=== PATIENT | male | born 1955 | race Caucasian/White ===

== ENCOUNTER 2024-09-22 05:58 | Emergency (ER) | payer BC, SELFPAY ==
--- NOTE | ~2024-09-22 | CT_ITS ---
EXAMINATION: CT ABDOMEN AND PELVIS WITHOUT CONTRAST CLINICAL INFORMATION: Left flank pain COMPARISON: None available. TECHNIQUE: Multidetector volumetric imaging was performed from the superior aspect of the liver through the pubic symphysis. Sagittal and coronal reformatted images were obtained on the technologist's workstation. This CT examination was performed using dose optimization techniques as appropriate, variously including the following: *Automated exposure control *Adjustment of mA and/or kV according to patient size (this includes techniques or standardized protocols for targeted exams where dose is matched to indication/reason for exam; i.e. extremities or head) *Use of iterative reconstruction technique. DLP: 852 mGy centimeter. FINDINGS: Inadequate evaluation of the intra-abdominal organs and vascular structures due to lack of IV contrast. LUNG BASES: No acute airspace disease or gross pulmonary nodules. LIVER, GALLBLADDER, AND BILIARY TREE: Liver measures 19 cm. Gallbladder is contracted without pericholecystic fluid collection or gallbladder wall thickening. No intrahepatic or extrahepatic biliary ductal dilatation. PANCREAS: No peripancreatic fluid collections. No main pancreatic ductal dilatation. Punctate calcification tail of the pancreas. SPLEEN: 8 cm. ADRENAL GLANDS: No nodular lesions. KIDNEYS AND URETERS: Right kidney: No hydronephrosis. There is a 19 mm ovoid shaped calcium attenuation extending through the corticomedullary parenchyma of the lower pole with associated renal cortical defect. There are multifocal different sizes fluid density lesions, the largest measures 45 mm in an exophytic location of the upper pole. Left kidney: There is a less than 0.5 mm calcification in the lumen of the distal left ureter near the vesicoureteral junction. There is mild dilatation of the pelvicalyceal system. BLADDER: Collapsed. GASTROINTESTINAL TRACT: Appendix is normal. Few scattered diverticula in the transverse colon and left hemicolon. Abundant stool. No intestinal obstruction pattern. No intestinal wall thickening. No ascites. No pneumoperitoneum. No pneumatosis intestinalis. ABDOMINAL WALL: There is a fat-containing lobulated the umbilical and periumbilical hernia. LYMPH NODES: Nonspecific mildly prominent less than 10 mm lymph nodes in the mesentery, retroperitoneum, inguinal and iliac. Mesenteric edema pattern. VASCULAR: Calcified plaques in the abdominal aorta and iliac arteries as well as femoral arteries and the coronary arteries no aneurysm, abdominal aorta. Calcified plaque in the origin of the right main renal artery and the celiac trunk and superior mesenteric artery. PELVIC VISCERA: Dystrophic calcifications in a nonenlarged prostate gland. OSSEOUS STRUCTURES: Multilevel thoracolumbar spondylosis pronounced at L4-5 and L5-S1 levels resulting in bilateral neuroforamina stenosis and likely central spinal canal stenosis. Left hemilaminectomy, L4-5 and L5-S1. Degenerative changes in the coxofemoral joints and symphysis pubis and the sacroiliac joints pronounced on the left side. CT/CT abdomen pelvis wo IV con IMPRESSION: 0.5 mm obstructing calculus distal left ureter resulting in mild left hydronephrosis. Multifocal different sizes cysts, right kidney. 2 mm calcific abnormality in the lower pole right kidney may represent milk of calcium in a pelvicalyceal diverticulum. Fat-containing umbilical/periumbilical hernia. Hepatomegaly. Diverticular disease, transverse and left hemicolon. 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 Fleischner guidelines were followed. Electronically signed by: Errol Quick MD 09/22/2024 09:13 AM EDT
[2024-09-22 06:00] VITALS: BP 145/73; PULSE 80; RESP 18; TEMP 36.4; O2SAT 96; BMI 31.9
[2024-09-22 06:25] LABS: MANUAL DIFF FLAG NO
[2024-09-22 06:27] LABS: Hematocrit 41.1 % (42.0-52.0); Hemoglobin 14.2 g/dl (14.0-18.0); Imm Gran Abs Auto 0.02 X10*3/uL (0.00-0.03); Imm Gran Pct Auto 0.3 % (0.0-0.4); Lymphocytes Absolute Auto 1.8 X10*3/uL (1.2-4.9); Mean Corpuscular HGB Conc 34.5 g/dl (31.0-36.0); Mean Corpuscular Hemoglobin 32.1 pg (27.0-33.0); Mean Corpuscular Volume 93.0 fL (80.0-98.0); NRBC Abs Auto 0.000 X10*3/uL (0.0-0.012); NRBC Pct Auto 0.0 /100WBC (0.0-0.2); Platelet Count 228 X10*3/uL (160-400); Red Blood Count 4.42 X10*6/uL (4.60-5.80); White Blood Count 6.9 X10*3/uL (4.8-10.8)
[2024-09-22 06:32] LABS: Appearance Urine Clear; Glucose Urine UA Negative (Negative); PH 5.0 (5.0-9.0); Specific Gravity - Urine 1.015 (1.005-1.025); UMIC TRIGGER UACC YES
[2024-09-22 06:44] LABS: Alanine Aminotransferase 31 U/L (0-40); Albumin Level 4.5 g/dL (3.5-5.0); Alkaline Phosphatase 85 U/L (39-117); Anion Gap 14 (12-20); Aspartate Amino Transferase 26 U/L (5-37); Blood Urea Nitrogen 21 mg/dL (9-16); Calcium 9.2 mg/dL (8.4-10.2); Carbon Dioxide 21 mmol/L (22-29); Chloride 107 mmol/L (96-108); Creatinine Clr Calc Pharmacy 70.3; Estimated Glomerular Filt Rate > 60; Lipase 28 U/L (8-78); Potassium 3.9 mmol/L (3.3-5.1); Sodium 138 mmol/L (135-145); Total Protein 7.5 g/dL (6.5-8.0)
[2024-09-22 07:29] VITALS: BP 121/73; PULSE 68; RESP 14; TEMP 36.8; O2SAT 95
--- NOTE | 2024-09-22 07:32 | ED.ABDPAIN ---
HPI - Abdominal Pain General Chief Complaint: Abdominal Pain Stated Complaint: sharp right sided pain Time Seen by Provider: 09/22/24 07:01 Source: patient Mode of arrival: ambulatory Limitations: no limitations History of Present Illness ED Provider: HPI narrative: 69-year-old male presenting with left-sided flank pain, no obvious hematuria no testicular pain no fevers or chills no nausea no vomiting no trauma reported. No numbness in the groin or weakness in the lower extremities. Related Data Home Medications ?Medication ?Instructions ?Recorded ?Confirmed atorvastatin 20 mg tablet 20 mg PO DAILY 07/28/21 lisinopril 5 mg tablet 5 mg PO DAILY 07/28/21 rivaroxaban 20 mg tablet (Xarelto) 20 mg PO DAILY 07/28/21 Previous Rx's ?Medication ?Instructions ?Recorded amoxicillin-potassium clavulanate 1 tab PO BID 10 days #20 tabs 07/28/21 1,000 mg-62.5 mg tablet,ext.rel 12hr (Augmentin XR) ondansetron 4 mg disintegrating 4 mg PO Q8H PRN nausea and 09/22/24 tablet vomiting #4 tabs oxycodone 5 mg tablet 5 mg PO Q6H PRN pain #10 tabs 09/22/24 tamsulosin 0.4 mg capsule (Flomax) 0.4 mg PO BEDTIME #7 caps 09/22/24 Allergies Allergy/AdvReac Type Severity Reaction Status Date / Time bee pollen (bee stings) Allergy Anaphylaxis Verified 09/22/24 06:07 bees Allergy Mild Anaphylaxis Uncoded 09/22/24 06:07 Review of Systems Constitutional: Reports as per [facility] Social History Social History Alcohol intake: current Alcohol intake frequency: a few times a week Smoked in Last 30 Days: No Use of substances other than those prescribed or required for medical reasons: No Advance Directives: No Advance Directives Information Provided: Yes Physical Exam ED Vital Signs: Vital Signs - 24 hr 09/22/24 06:00 09/22/24 07:29 09/22/24 10:20 Temperature 97.6 F 98.2 F Pulse Rate 80 68 72 Respiratory Rate 18 14 14 Blood Pressure 145/73 H 121/73 139/84 Pulse Oximetry 96 95 96 Oxygen Delivery Method Room Air Room Air Room Air BMI result Body Mass Index 31.9 Const Other: Gen: ?Overall well-appearing patient HEENT: PERRLA, EOMI, MMM, Neck: Supple, no LAD CV: RRR, no obvious murmurs appreciated Resp: ?No wheezing rales rhonchi no stridor moving air well Abd: ?Bowel sounds are present, no tenderness no rebound no rigidity, no CVA tenderness, exam deferred MSK: FROM, strength 5/5 all extremities Skin: Warm, dry, intact, Neuro: ?Alert and oriented x3, moving upper and lower extremities symmetrically, no obvious facial asymmetry noted Medical Decision Making Medical Decision Making MDM Narrative: Likely this is renal colic, blood work without any evidence for dehydration, renal issues, none sick appearing did not feel this is pyelonephritis but this is likely renal colic and as this is his 1st time we will obtain CT without contrast he is otherwise well-appearing currently not in pain. 10:27 patient re-evaluated, discussed CT findings see my discharge instructions Differential Diagnosis Differential Diagnoses: The differential diagnosis associated with the presentation includes (Pyelonephritis, UTI, renal colic, AAA, diverticulitis) 2022 Emergency Medicine Coding Guide from [employer] on 09/22/2024 All calculations should be rechecked by clinician prior to use RESULT SUMMARY: 5 Estimated Level of Service Problems: Moderate (4) Risk: High (5) Data: Extensive (5) NARRATIVE MDM: This patient's problem complexity is Moderate as patient: has a new undiagnosed problem with uncertain prognosis but that could be serious. This patient's risk is High due to: overall presentation requiring evaluation for a potentially High-risk process. This patient's data complexity is Extensive due to: -multiple tests ordered -independent interpretation of imaging or EKG INPUTS: Number and Complexity ?> 5 = 4: undiagnosed new problem, uncertain outcome (e) Risk level ?> 4 = High Tests ordered ?> 2 = 2 Tests results reviewed (excluding labs) ?> 1 = 1 Prior external notes reviewed ?> 0 = 0 Assessment requiring and independent historian ?> 0 = No Independent interpretation of tests ?> 1 = Yes Discussed management/test interpretation w/external professional ?> 0 = No Admission/Observation Consideration of admission/observation: Escalation of care including admission/observation considered Lab Data MDM Lab Attestation statement: I reviewed the patient's lab results. 09/22/24 06:20 09/22/24 06:20 Labs: Lab Results 09/22/24 09/22/24 Range/Units 06:20 06:26 WBC 6.9 (4.8-10.8) X10*3/uL RBC 4.42 L (4.60-5.80) X10*6/uL Hgb 14.2 (14.0-18.0) g/dl Hct 41.1 L (42.0-52.0) % MCV 93.0 (80.0-98.0) fL MCH 32.1 (27.0-33.0) pg MCHC 34.5 (31.0-36.0) g/dl RDW 12.2 (11.0-16.0) % Plt Count 228 (160-400) X10*3/uL MPV 9.1 L (9.4-12.4) fL Immature Gran % (Auto) 0.3 (0.0-0.4) % Neut % (Auto) 62.1 (45-73) % Lymph % (Auto) 26.2 (20-40) % [place] % (Auto) 6.9 (2-11) % Eos % (Auto) 3.8 (0-4) % Baso % (Auto) 0.7 (0-2) % Lymph # (Auto) 1.8 (1.2-4.9) X10*3/uL [place] # (Auto) 0.5 (0.1-1.2) X10*3/uL Eos # (Auto) 0.3 (0.0-0.4) X10*3/uL Baso # (Auto) 0.1 (0.0-0.2) X10*3/uL Abs Immat Gran (auto) 0.02 (0.00-0.03) X10*3/uL Absolute Neuts (auto) 4.3 (2.0-8.3) x10*3/uL Absolute Nucleated RBC 0.000 (0.0-0.012) X10*3/uL Nucleated RBC % (auto) 0.0 (0.0-0.2) /100WBC Sodium 138 (135-145) mmol/L Potassium 3.9 (3.3-5.1) mmol/L Chloride 107 (96-108) mmol/L Carbon Dioxide 21 L (22-29) mmol/L Anion Gap 14 (12-20) BUN 21 H (9-16) mg/dL Creatinine 1.11 (0.5-1.4) mg/dL Estim Creat Clear Calc 70.3 Estimated GFR > 60 Random Glucose 196 H (60-115) mg/dL Calcium 9.2 (8.4-10.2) mg/dL Total Bilirubin 0.6 (0.0-1.0) mg/dL AST 26 (5-37) U/L ALT 31 (0-40) U/L Alkaline Phosphatase 85 (39-117) U/L Total Protein 7.5 (6.5-8.0) g/dL Albumin 4.5 (3.5-5.0) g/dL Lipase 28 (8-78) U/L Urine Color Yellow Urine Appearance Clear Urine pH 5.0 (5.0-9.0) Ur Specific [place] 1.015 (1.005-1.025) Urine Protein Trace (Neg-Trace) mg/dL Urine Glucose (UA) Negative (Negative) mg/dL Urine Ketones Negative (Negative) mg/dL Urine Blood Large (3+) H (Negative) Urine Nitrite Negative (Negative) Ur Leukocyte Esterase Trace H (Negative) Urine RBC >20 H (0-2) /HPF Urine WBC 0-5 (0-5) /HPF Ur Squamous Epith Cells 0-2 (0-2) /HPF Urine Bacteria None Seen (None Seen) Hyaline Casts 0-2 (0-2) /LPF Independent Interpretation I performed an independent interpretation of an: CT Scan (Left-sided hydronephrosis) Radiology Impression Discussion of test interpretation with radiology: I have reviewed the radiologist's reading. (0.5 mm obstructing calculus distal left ureter resulting in mild left hydronephrosis. Multifocal different sizes cysts, right kidney.) Prescription Management I considered prescription management with: Pain Medication Discharge Plan Discharge Clinical Impression: Renal colic on left side Patient Disposition: Home, Self-Care Instructions: Renal Colic (ED) Additional Instructions: As discussed you have left-sided 5 mm kidney stone that you were in the process of passing, I would like you to take Tylenol 975 mg every 6 hours around the clock with oxycodone every 4-6 hours needed for pain, and we discussed taking Flomax, take it at bedtime just be mindful can make you dizzy, follow up with the PCP worsening issues such as inability to urinate, fevers chills nausea or vomiting with the inability to keep fluids down come back to the ER. Ondansetron as needed for nausea I provided as well Prescriptions: New ondansetron 4 mg tablet,disintegrating 4 mg PO Q8H PRN (Reason: nausea and vomiting) Qty: 4 0RF tamsulosin [Flomax] 0.4 mg capsule 0.4 mg PO BEDTIME Qty: 7 0RF oxycodone 5 mg tablet 5 mg PO Q6H PRN (Reason: pain) Qty: 10 0RF Rx Instructions: Partial Fill upon patient request. No Action lisinopril 5 mg tablet 5 mg PO DAILY atorvastatin 20 mg tablet 20 mg PO DAILY Xarelto 20 mg tablet 20 mg PO DAILY amoxicillin-pot clavulanate [Augmentin XR] 1,000-62.5 mg tablet extended release 12 hr 1 tab PO BID 10 Days Qty: 20 0RF Print Language: Dutch
[2024-09-22 10:20] VITALS: BP 139/84; PULSE 72; RESP 14; O2SAT 96
[2024-09-22 10:52] VITALS: BP 139/84; PULSE 72; RESP 14; TEMP 36.7; O2SAT 96
== END 2024-09-22 10:53 | disposition home or self-care (01) ==
PROVIDERS: Emergency Provider Emergency Medicine; PCP Internal Medicine
DX: N23 Unspecified renal colic (principal)
CPT/HCPCS: 36415; 74176; 80053; 81001; 83690; 85025; 99284

== ENCOUNTER → 2024-09-22 07:32 | Outpatient (BNV) | payer BC, SELFPAY | PROVIDERS: Emergency Provider Emergency Medicine; PCP Internal Medicine; Visit Provider Radiology Diagnostic Radiology | DX: R10.12 Left upper quadrant pain (principal) | CPT/HCPCS: 74176 ==